=== PATIENT | male | born 1965 | race Caucasian/White ===

== ENCOUNTER 2018-09-04 20:55 | Emergency (ER) | payer MEDICAID, OTHER ==
[~2018-09-04] VITALS: Ht 185.4 cm; Wt 91.6 kg
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
--- NOTE | 2018-09-04 21:20 | NUR ---
DR. HUFFMAN AT BEDSIDE FOR EVAL.
[2018-09-04] MEDS ORDERED: OLANZAPINE 5 MG TABLET ONE (21:25)
[2018-09-04] MEDS ORDERED: TDAP [DIPH/PERTUSSIS/TET] 0.5 ML VIAL IM ONE ×2 (21:30→21:36)
[2018-09-04] MEDS ORDERED: LIDOCAINE HCL/PF 1% 30 ML VIAL TP ONE (21:30)
[2018-09-04] MEDS ORDERED: OLANZAPINE 5 MG TABLET PO ONE (21:30)
[2018-09-04] MEDS ORDERED: LIDOCAINE HCL/PF 1% 30 ML SDV ONE (21:32)
--- NOTE | 2018-09-04 21:35 | NUR ---
URINE SPECIMEN COLLECTED AND SENT TO LAB.
--- NOTE | 2018-09-04 21:35 | NUR ---
ER PHLEB AT BEDSIDE FOR BLOOD DRAW.
[2018-09-04 21:38] LABS: BASOPHILS % (AUTO) 0.6 % (0.0-2.0); EOSINOPHILS % (AUTO) 2.3 % (0.0-6.0); HEMATOCRIT 41 % (39-51); HEMOGLOBIN 14.1 g/dL (13.5-17.5); LYMPHOCYTES # (AUTO) 1.9 /CMM (0.8-4.8); LYMPHOCYTES % (AUTO) 24.5 % (20.0-44.0); MEAN CORPUSCULAR HGB CONC 34 g/dl (31.0-36.0); MEAN CORPUSCULAR VOLUME 91 fL (80-96); MONOCYTES # (AUTO) 0.9 /CMM (0.1-1.30); MONOCYTES % (AUTO) 11.4 % (2.0-12.0); NEUTROPHILS # (AUTO) 4.8 /CMM (1.8-8.9); NEUTROPHILS % (AUTO) 61.2 % (43.0-81.0); PLATELET COUNT (AUTO) 223 /CMM (150-450); RED BLOOD CELL COUNT(AUTO) 4.53 MIL/uL (4.5-6.0); WHITE BLOOD COUNT (AUTO) 7.8 K/uL (4.3-11.0)
--- NOTE | 2018-09-04 21:41 | NUR ---
SUTURING DONE BY CHRISTIAN TRACY STUDENT.
[2018-09-04 21:44] LABS: APPEARANCE,URINE CLEAR (CLEAR); BILIRUBIN,URINE NEGATIVE (NEGATIVE); BLOOD, URINE TRACE Ery/uL (NEGATIVE); COLOR,URINE YELLOW (YELLOW); KETONES,URINE NEGATIVE (NEGATIVE); LEUKOCYTE ESTERASE ,URINE NEGATIVE (NEGATIVE); NITRITE, URINE NEGATIVE (NEGATIVE); PROTEIN,URINE NEGATIVE (NEGATIVE); UGLUCOSE NEGATIVE (NEGATIVE); UROBILINOGEN,URINE 0.2 EU/dL (0.2)
[2018-09-04 21:47] LABS: CARBON DIOXIDE 24 mmol/L (21-32); CHLORIDE 103 mmol/L (98-107); CREATININE 1.2 mg/dL (0.6-1.3); GLUCOSE 114 mg/dL (74-106); POTASSIUM 4.1 mmol/L (3.5-5.1); SODIUM SERUM 138 mmol/L (136-145); UREA NITROGEN, BLOOD 12 mg/dL (7-18)
[2018-09-04 21:48] LABS: BACTERIA,URINE Rare /HPF (None Seen); SQUAMOUS EPITHELIAL CELL,UR Rare /HPF (None Seen); WBC,URINE 0-2 /HPF (0-3)
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
[2018-09-04 21:53] LABS: ACETAMINOPHEN < 2 ug/ml (10-30); ALANINE AMINOTRANSFERASE 21 U/L (12-78); ALBUMIN 3.9 g/dL (3.4-5.0); ALCOHOL, BLOOD 179 mg/dL (0-0); ALKALINE PHOSPHATASE 68 U/L (46-116); ASPARTATE AMINOTRANSFERASE 25 U/L (15-37); BILIRUBIN,DIRECT 0.1 mg/dL (0.0-0.2); BILIRUBIN,TOTAL 0.3 mg/dL (0.2-1.0); SALICYLATE < 2.8 mg/dL (2.8-20.0); TOTAL PROTEIN, SERUM 7.4 g/dL (6.4-8.2)
[2018-09-04 21:57] LABS: CALCIUM, SERUM 9.1 mg/dL (8.5-10.1)
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
--- NOTE | 2018-09-04 22:58 | NUR ---
CALLED [facility] FOR REPORT
--- NOTE | 2018-09-05 00:25 | NUR ---
PT REFUSED TO WAIT FOR [employer]. PT MEDICALLY CLEARED FOR DISCHARGE. AAOX4. RESPIRATIONS EVEN AND UNLABORED. VITAL SIGNS STABLE. AMULATORY WITH STEADY GAIT. Patient discharged to home in stable condition. Written and verbal after care instructions given. Patient verbalizes understanding of instruction.
[2018-09-05 00:27] VITALS: BP 132/89
== END 2018-09-05 00:27 | disposition home or self-care (01) ==
LOC: ER 21:01
DX: S01.312A Laceration without foreign body of left ear, initial encounter (principal); F22 Delusional disorders; F17.200 Nicotine dependence, unspecified, uncomplicated; Z88.8 Allergy status to other drugs, medicaments and biological substances; Z59.0 Homelessness; Y00.XXXA Assault by blunt object, initial encounter; Y93.89 Activity, other specified; Y92.89 Other specified places as the place of occurrence of the external cause; Y99.8 Other external cause status
CPT/HCPCS: 12013; 36415; 70450; 80048; 80076; 80305; 80307; 80329; 81001; 85025; 90471; 90715; 99284; A6403; G0480; J3490; 81000-TC

== ENCOUNTER 2018-11-17 15:58 | Emergency (ER) | payer MEDICAID ==
[~2018-11-17] VITALS: Ht 182.9 cm; Wt 96.2 kg
[2018-11-17] MEDS ORDERED: ASPIRIN 81 MG TAB.CHEW ONE (16:20)
--- NOTE | 2018-11-17 16:20 | NUR ---
L SIDED CHEST PAIN INTERMITTENT SINCE THURSDAY. APPEARS SLIGHTLY ANXIOUS. ADMITS TO HAVING A VERY POOR DIET. NO ACUTE DISTRESS NOTED. DENIES SOB, DIZZINESS, WEAKNESS. DEMARCUS PERKINS AT BEDSIDE FOR EVAL. ON MONITOR, AWAITING ORDERS
[2018-11-17] MEDS ORDERED: ASPIRIN 81 MG TAB.CHEW PO ONE (16:30)
[2018-11-17 16:31] LABS: BASOPHILS % (AUTO) 0.3 % (0.0-2.0); EOSINOPHILS % (AUTO) 3.6 % (0.0-6.0); HEMATOCRIT 44 % (39-51); HEMOGLOBIN 15.1 g/dL (13.5-17.5); LYMPHOCYTES % (AUTO) 39.9 % (20.0-44.0); MEAN CORPUSCULAR HGB CONC 34 g/dl (31.0-36.0); MEAN CORPUSCULAR VOLUME 92 fL (80-96); MONOCYTES # (AUTO) 0.5 /CMM (0.1-1.30); NEUTROPHILS # (AUTO) 2.4 /CMM (1.8-8.9); NEUTROPHILS % (AUTO) 47.2 % (43.0-81.0); PLATELET COUNT (AUTO) 222 /CMM (150-450); RED BLOOD CELL COUNT(AUTO) 4.85 MIL/uL (4.5-6.0)
[2018-11-17 16:38] LABS: CALCIUM, SERUM 9.1 mg/dL (8.5-10.1); CARBON DIOXIDE 24 mmol/L (21-32); CHLORIDE 102 mmol/L (98-107); GLUCOSE 85 mg/dL (74-106); POTASSIUM 4.1 mmol/L (3.5-5.1); UREA NITROGEN, BLOOD 12 mg/dL (7-18)
[2018-11-17 16:44] LABS: ALANINE AMINOTRANSFERASE 22 U/L (12-78); ALBUMIN 3.6 g/dL (3.4-5.0); ALKALINE PHOSPHATASE 76 U/L (46-116); ASPARTATE AMINOTRANSFERASE 16 U/L (15-37); BILIRUBIN,DIRECT 0.1 mg/dL (0.0-0.2); BILIRUBIN,TOTAL 0.7 mg/dL (0.2-1.0); TOTAL PROTEIN, SERUM 7.4 g/dL (6.4-8.2)
[2018-11-17 16:58] LABS: SODIUM SERUM 135 mmol/L (136-145)
--- NOTE | 2018-11-17 18:11 | NUR ---
ASSISTED PT UP TO USE RESTROOM. STATES FEELING BETTER, "MAYBE BECAUSE HE HASN'T BEEN MOVING". VSS. NO COMPLAINTS AT THIS TIME. WILL CONT TO MONITOR.
--- NOTE | 2018-11-17 18:41 | NUR ---
PT PROVIDED FOOD TRAY
--- NOTE | 2018-11-17 19:31 | NUR ---
IV removed. Catheter intact and site benign. Pressure and 4x4 applied to site. No bleeding noted.Patient discharged to home in stable condition. Written and verbal after care instructions given. Patient verbalizes understanding of instruction.
[2018-11-17 19:32] VITALS: BP 134/96
== END 2018-11-17 19:33 | disposition home or self-care (01) ==
LOC: ER 16:06
DX: R07.89 Other chest pain (principal); E78.5 Hyperlipidemia, unspecified; F10.20 Alcohol dependence, uncomplicated; F31.9 Bipolar disorder, unspecified; Y90.9 Presence of alcohol in blood, level not specified; Z59.0 Homelessness; Z87.891 Personal history of nicotine dependence; Z88.8 Allergy status to other drugs, medicaments and biological substances
CPT/HCPCS: 36415; 71045-TC; 80048-TC; 80076-TC; 84484-TC; 85025-TC

== ENCOUNTER 2020-03-16 18:19 | Emergency (ER) | payer MEDICAID ==
[~2020-03-16] VITALS: Ht 182.9 cm; Wt 84.8 kg
--- NOTE | 2020-03-16 18:25 | NUR ---
PT NOTED WITH IV LINE 20G ON RAC PRESERVATIVE FILLER MACHINE OPERATOR. BLOOD DRAWN AND SENT TO LAB
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
[2020-03-16] MEDS ORDERED: NITROGLYCERIN 0.4 MG/TAB BOTTLE SL ONE (18:30)
[2020-03-16] MEDS ORDERED: ASPIRIN 325 MG TABLET PO ONE (18:30)
[2020-03-16] MEDS ORDERED: ASPIRIN 325 MG TABLET ONE (18:56)
[2020-03-16] MEDS ORDERED: NITROGLYCERIN 0.4 MG/TAB BOTTLE ONE (18:56)
[2020-03-16] MEDS ORDERED: QUETIAPINE FUMARATE 100 MG TABLET PO SCH (19:00)
[2020-03-16 19:20] LABS: CALCIUM, SERUM 9.6 mg/dL (8.5-10.1); CARBON DIOXIDE 25 mmol/L (21-32); CHLORIDE 103 mmol/L (98-107); CREATININE 1.1 mg/dL (0.6-1.3); GLUCOSE 97 mg/dL (74-106); POTASSIUM 3.7 mmol/L (3.5-5.1); SODIUM SERUM 140 mmol/L (136-145); UREA NITROGEN, BLOOD 15 mg/dL (7-18)
--- NOTE | 2020-03-16 19:36 | NUR ---
URINE COLLECTED AND SENT TO LAB
[2020-03-16 20:29] LABS: BASOPHILS % (AUTO) 0.4 % (0.0-2.0); EOSINOPHILS % (AUTO) 0.7 % (0.0-6.0); HEMATOCRIT 40 % (39-51); HEMOGLOBIN 13.3 g/dL (13.5-17.5); LYMPHOCYTES % (AUTO) 14.6 % (20.0-44.0); MEAN CORPUSCULAR HGB CONC 34 g/dl (31.0-36.0); MEAN CORPUSCULAR VOLUME 90 fL (80-96); MONOCYTES # (AUTO) 0.5 /CMM (0.1-1.30); MONOCYTES % (AUTO) 7.1 % (2.0-12.0); NEUTROPHILS % (AUTO) 77.2 % (43.0-81.0); PLATELET COUNT (AUTO) 256 /CMM (150-450); RED BLOOD CELL COUNT(AUTO) 4.37 MIL/uL (4.5-6.0); WHITE BLOOD COUNT (AUTO) 6.5 K/uL (4.3-11.0)
[2020-03-16 21:07] LABS: APPEARANCE,URINE CLEAR (CLEAR); BILIRUBIN,URINE NEGATIVE (NEGATIVE); BLOOD, URINE NEGATIVE Ery/uL (NEGATIVE); COLOR,URINE YELLOW (YELLOW); LEUKOCYTE ESTERASE ,URINE TRACE (NEGATIVE); NITRITE, URINE NEGATIVE (NEGATIVE); PROTEIN,URINE TRACE mg/dl (NEGATIVE); UGLUCOSE NEGATIVE (NEGATIVE); UROBILINOGEN,URINE 0.2 EU/dL (0.2)
[2020-03-16 21:30] LABS: BACTERIA,URINE 1+ /HPF (None Seen); RBC,URINE 0-2 /HPF (0-2); SQUAMOUS EPITHELIAL CELL,UR Few /HPF (None Seen); WBC,URINE 21-50 /HPF (0-3)
[2020-03-16 21:52] LABS: ALANINE AMINOTRANSFERASE 19 U/L (12-78); ALBUMIN 3.8 g/dL (3.4-5.0); ALCOHOL, BLOOD < 3 mg/dL (0-0); ALKALINE PHOSPHATASE 79 U/L (46-116); ASPARTATE AMINOTRANSFERASE 14 U/L (15-37); BILIRUBIN,DIRECT 0.1 mg/dL (0.0-0.2); BILIRUBIN,TOTAL 0.7 mg/dL (0.2-1.0); TOTAL PROTEIN, SERUM 7.6 g/dL (6.4-8.2)
[2020-03-16 22:00] LABS: ACETAMINOPHEN < 2 ug/ml (10-30)
--- NOTE | 2020-03-16 22:32 | NUR ---
CALLED [facility] [place] [phone]
--- NOTE | 2020-03-16 22:35 | NUR ---
ETA 60 MINS
--- NOTE | 2020-03-17 | NUR ---
PER MARIANGEL FIORE; INSTRUCTIONS: ONCE COVID TEST RESULTS, FAX 1175 HOLD AND RESULTS TO [facility] [phone].
--- NOTE | 2020-03-17 00:59 | NUR ---
PT SEEN BY MARIANGEL SOARES.
--- NOTE | 2020-03-17 01:06 | NUR ---
PER LAB COVID TEST IS NEGATIVE.
[2020-03-17] MEDS ORDERED: QUETIAPINE FUMARATE 100 MG TABLET PO SCH (01:30)
--- NOTE | 2020-03-17 01:34 | NUR ---
PROVIDED MARIANGEL FIORE WITH PT COVID RESULTS.
[2020-03-17] MEDS ORDERED: LORAZEPAM 1 MG TABLET PO ONE (02:00)
[2020-03-17] MEDS ORDERED: QUETIAPINE FUMARATE 100 MG TABLET ONE (02:05)
--- NOTE | 2020-03-17 02:23 | NUR ---
COIVD RESULTS AND 5150 HOLD FAXED TO [facility] [phone]. PER RADIO MECHANIC APPRENTICE [facility] WILL FOLLOW UP IN AM.
[2020-03-17] MEDS ORDERED: DIVALPROEX SODIUM 500 MG TABLET.DR PO ONE ×2 (10:30→10:35)
--- NOTE | 2020-03-17 12:18 | NUR ---
STILL WAITING FOR [facility] FOR PT TRANSFER INFO. NO CALL BACK YET
--- NOTE | 2020-03-17 14:00 | NUR ---
PT ATE LUNCH VSS CALM AND QUIET
--- NOTE | 2020-03-17 14:43 | NUR ---
FAXED INFORMATION TO [facility] X2 AND NO RESPONSE FROM RECIEVING CLINICAL INFORMATION. SPOKE TO [facility] AND WILL FOLLOW UP WITH [facility].
--- NOTE | 2020-03-17 15:00 | NUR ---
PT WATCHING TV RESTING COMFORTABLY
--- NOTE | 2020-03-17 15:50 | NUR ---
WEED BURNER JUAN WORKING ON PATIENT TRANSFER. WILL CALL US BACK IN AN HOUR
--- NOTE | 2020-03-17 17:31 | NUR ---
[facility] CALLED BACK TO FOLLOW UP IF [facility] ALREADY CALLED. WAS ADVISED BY HER THAT SHE WILL FOLLOW UP WITH [facility]
[2020-03-17] MEDS ORDERED: NITROGLYCERIN 0.4 MG/TAB BOTTLE SL ONE (19:00)
[2020-03-17] MEDS ORDERED: NITROGLYCERIN 0.4 MG/TAB BOTTLE ONE (19:21)
--- NOTE | 2020-03-17 19:22 | NUR ---
SPOKE TO [place] AUGUST, STATES SHE SPOKE TO ALEXANDRA FROM [facility], PENDING TRANSFER INFORMATION.
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
--- NOTE | 2020-03-17 20:10 | NUR ---
AUDREY FIORE JOURNALISM INTERN WILL RECEIVE TRANSFER INFO IN 30 MINS PER [facility].
--- NOTE | 2020-03-17 20:41 | NUR ---
SPOKE TO CHRISTIANO FROM [facility], AUDREY ALVARADO WILL FOLLOW UP IN A FEW HOURS D/T RECEIVING NITRO SL TAB FOR CHEST PAIN. AWARE PT DENIES CP AT THIS TIME.
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
[2020-03-17 23:00] VITALS: BP 131/94
--- NOTE | 2020-03-17 23:00 | NUR ---
CALLED [facility] [phone] FOR ADMISSION UPDATE. SPOKE TO CHRISTIANO STATES " I WILL CALL YOU BACK"
--- NOTE | 2020-03-17 23:08 | NUR ---
PER PRECISION MACHINIST [facility], AWARE CHRISTIANO IS SUPPOSED TO CALL BACK WITH TRANSFER INFO. SHE WILL ESCALATE TO [facility].
--- NOTE | 2020-03-17 23:15 | NUR ---
SPOKE TO [facility] AND ADVISED US THAT SHE HAD SPOKEN TO JL REGARDING ADMISSION AT [facility]. [facility] WILL CONTACT [facility] INTAKE FOR POSSIBLE ADMISSION FOR GERIATRIC PSYCH ADMISSION. AT THE MOMENT IS NO UPDATE WE WILL STILL WAIT FOR [facility] TO CALL BACK.
--- NOTE | 2020-03-17 23:20 | NUR ---
RECIEVED A CALL FROM [facility] AND ADVISED THAT SHE SPOKE TO [facility] AND [facility]. PER BOTH HOSPITALS INTAKE, THEY ARE FULL AND NO BEDS AVAILABLE. WILL STILL HAVE TO WAIT FOR [facility] TO CALL BACK.
--- NOTE | 2020-03-17 23:22 | NUR ---
SPOKE TO CHRISTIANO [facility] CALL BACK [phone] REPORT TO THERON CEBALLOS. ACCEPTING DR. PERRY BED 129-C
--- NOTE | 2020-03-17 23:28 | NUR ---
Ebony isbell in ED - 03/17/20 at 2329 by EVICTOR CALLED [facility] FOR TRANSPORT. ETA [phone].
--- NOTE | 2020-03-17 23:29 | NUR ---
CALLED [facility] FOR TRANSPORT. ETA [phone].
[2020-03-17] MEDS ORDERED: chlorproMAZINE HCL 25 MG TABLET PO ONE (23:30)
[2020-03-17] MEDS ORDERED: QUETIAPINE FUMARATE 100 MG TABLET PO ONE (23:30)
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
--- NOTE | 2020-03-17 23:46 | NUR ---
REPORT GIVEN TO TUCKER CRUMP AT [facility] FOR [facility].
[2020-03-18] MEDS ORDERED: QUETIAPINE FUMARATE 100 MG TABLET ONE ×2 (00:36→00:38)
[2020-03-18] MEDS ORDERED: chlorproMAZINE HCL 25 MG TABLET ONE (00:47)
== END 2020-03-18 02:20 ==
LOC: ER 18:22
DX: R07.9 Chest pain, unspecified (principal); R45.851 Suicidal ideations; Z59.0 Homelessness; Z20.828 Contact with and (suspected) exposure to other viral communicable diseases; F17.200 Nicotine dependence, unspecified, uncomplicated; F31.9 Bipolar disorder, unspecified; F20.9 Schizophrenia, unspecified; Z82.49 Family history of ischemic heart disease and other diseases of the circulatory system; Z88.8 Allergy status to other drugs, medicaments and biological substances; R82.71 Bacteriuria; R00.0 Tachycardia, unspecified
CPT/HCPCS: 36415; 71045; 80048; 80076; 80299; 80307; 80320; 81001; 84484; 85025; 87086; 87426; 93005; 99285; C9803; Q0161; 81000-TC; G0480

== ENCOUNTER 2020-03-31 04:12 | Emergency (ER) | payer MEDICAID ==
[~2020-03-31] VITALS: Ht 180.3 cm; Wt 84.8 kg
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
--- NOTE | 2020-03-31 04:35 | NUR ---
[employer] AT BEDSIDE
--- NOTE | 2020-03-31 04:35 | NUR ---
URINE COLLECTED AND SENT TO LAB
[2020-03-31] MEDS ORDERED: ONDANSETRON HCL/PF 4 MG/2 ML VIAL ONE ×2 (04:48→06:11)
[2020-03-31] MEDS: ONDANSETRON HCL/PF 4 MG/2 ML VIAL IV ONE (04:51)
[2020-03-31 04:54] LABS: BASOPHILS % (AUTO) 0.2 % (0.0-2.0); EOSINOPHILS % (AUTO) 0.9 % (0.0-6.0); HEMATOCRIT 43 % (39-51); HEMOGLOBIN 14.5 g/dL (13.5-17.5); LYMPHOCYTES # (AUTO) 1.6 /CMM (0.8-4.8); LYMPHOCYTES % (AUTO) 18.5 % (20.0-44.0); MEAN CORPUSCULAR HGB CONC 34 g/dl (31.0-36.0); MEAN CORPUSCULAR VOLUME 91 fL (80-96); MONOCYTES # (AUTO) 0.8 /CMM (0.1-1.30); MONOCYTES % (AUTO) 9.7 % (2.0-12.0); NEUTROPHILS # (AUTO) 6.2 /CMM (1.8-8.9); NEUTROPHILS % (AUTO) 70.7 % (43.0-81.0); PLATELET COUNT (AUTO) 257 /CMM (150-450); RED BLOOD CELL COUNT(AUTO) 4.72 MIL/uL (4.5-6.0); WHITE BLOOD COUNT (AUTO) 8.7 K/uL (4.3-11.0)
[2020-03-31 04:58] LABS: BILIRUBIN,URINE NEGATIVE (NEGATIVE); BLOOD, URINE TRACE-INTA Ery/uL (NEGATIVE); COLOR,URINE YELLOW (YELLOW); LEUKOCYTE ESTERASE ,URINE TRACE (NEGATIVE); NITRITE, URINE NEGATIVE (NEGATIVE); PROTEIN,URINE NEGATIVE (NEGATIVE); UGLUCOSE NEGATIVE (NEGATIVE); UROBILINOGEN,URINE 0.2 EU/dL (0.2)
[2020-03-31 05:05] LABS: BACTERIA,URINE Few /HPF (None Seen); SQUAMOUS EPITHELIAL CELL,UR Few /HPF (None Seen)
[2020-03-31 05:16] LABS: ALANINE AMINOTRANSFERASE 30 U/L (12-78); ALBUMIN 3.9 g/dL (3.4-5.0); ALCOHOL, BLOOD < 3 mg/dL (0-0); ALKALINE PHOSPHATASE 91 U/L (46-116); ASPARTATE AMINOTRANSFERASE 16 U/L (15-37); BILIRUBIN,DIRECT 0.1 mg/dL (0.0-0.2); BILIRUBIN,TOTAL 0.6 mg/dL (0.2-1.0); CALCIUM, SERUM 9.7 mg/dL (8.5-10.1); CARBON DIOXIDE 25 mmol/L (21-32); CHLORIDE 98 mmol/L (98-107); CREATININE 1.1 mg/dL (0.6-1.3); GLUCOSE 128 mg/dL (74-106); POTASSIUM 4.1 mmol/L (3.5-5.1); SODIUM SERUM 135 mmol/L (136-145); UREA NITROGEN, BLOOD 10 mg/dL (7-18)
[2020-03-31] MEDS ORDERED: LORAZEPAM INJ 2 MG/ML VIAL ONE ×4 (05:25→09:05)
[2020-03-31] MEDS: LORAZEPAM INJ 2 MG/ML VIAL IV ONE ×4 (05:28→09:08)
--- NOTE | 2020-03-31 05:37 | NUR ---
[facility] NEIL PAGED FOR PSYCH EVAL.
[2020-03-31 05:43] LABS: ACETAMINOPHEN < 2 ug/ml (10-30)
[2020-03-31] MEDS: ONDANSETRON HCL/PF - ER 4 MG/2 ML VIAL IV ONE (06:17)
[2020-03-31] MEDS: IV NS 0.9% 1,000 ML BAG IV ONE (06:17)
--- NOTE | 2020-03-31 06:35 | NUR ---
DR HANSEN AT BEDSIDE
--- NOTE | 2020-03-31 06:35 | NUR ---
[facility], CRISIS TEAM MEAT PRESS OPERATOR AT BEDSIDE FOR ALDA
--- NOTE | 2020-03-31 07:00 | NUR ---
JOANN SENT TO LAB
--- NOTE | 2020-03-31 07:22 | NUR ---
RECEIVED ENDORSEMENT FROM MATTHEW CRUMP FOR [facility]. PATIENT IN BED AWAKE, HOOKED TO MONITOR. ELEVATED BP, AWARE. NOTED SWEATING. WILL CONTINUE TO MONITOR ACCORDINGLY.
--- NOTE | 2020-03-31 07:23 | NUR ---
SITTER AT BEDSIDE FOR SAFETY
[2020-03-31] MEDS ORDERED: OLANZAPINE 10 MG VIAL IM ONE (07:52)
[2020-03-31] MEDS: OLANZAPINE 10 MG VIAL IM ONE (07:55)
--- NOTE | 2020-03-31 10:31 | NUR ---
John from Lab Released COVID result: Negative
--- NOTE | 2020-03-31 12:36 | NUR ---
Spoke to car Negro Per checkout supervisor Elizabeth "Pt has been accepted BUT pending bed assignment- waiting for discharges"
--- NOTE | 2020-03-31 12:36 | NUR ---
Ebony isbell in ED - 03/31/20 at 1504 by DAMARIS Spoke to intake Sruthi Per station supervisor Elizabeth "Pt has been accepted to [facility] pending bed assignment- waiting for discharges"
--- NOTE | 2020-03-31 15:01 | NUR ---
PT IS ACCEPTED AT [facility] BY [phone] EXT [phone] PER JESSENIA INTAKE SEND PT AFTER 7PM.
--- NOTE | 2020-03-31 16:22 | NUR ---
s transport to [facility] arranged with [facility] trip #[phone] ETA [phone]
--- NOTE | 2020-03-31 18:16 | NUR ---
REPORT GIVEN TO ARMANDO CRUMP OF [facility]. COVID RESULT FAXED TO [phone]
--- NOTE | 2020-03-31 19:06 | NUR ---
REPORT GIVEN TO ROSAURA CRUMP FOR [facility]
--- NOTE | 2020-03-31 19:38 | NUR ---
REPORT GIVEN TO LINN Hicks FOR TRANSPORTATION [facility]. PT TRANSFERRED TO [facility] IN STABLE CONDITION
[2020-03-31 19:42] VITALS: BP 138/91
== END 2020-03-31 19:43 | disposition short-term general hospital (02) ==
LOC: ER 04:14
DX: R45.851 Suicidal ideations (principal); F15.10 Other stimulant abuse, uncomplicated; R07.9 Chest pain, unspecified; R00.0 Tachycardia, unspecified; Z20.828 Contact with and (suspected) exposure to other viral communicable diseases
CPT/HCPCS: 36415; 80048; 80076; 80299; 80307; 80320; 81001; 84484 ×2; 85025; 87086; 87426; 93005 ×2; 96361; 96372; 96374; 96375; 96376; 99291; C9803; J2060 ×4; J2405 ×3; J3490; J7030; 81000-TC; G0480

== ENCOUNTER 2020-04-07 02:20 | Emergency (ER) | payer MEDICAID ==
[~2020-04-07] VITALS: Ht 185.4 cm; Wt 84.8 kg
[2020-04-07 02:54] LABS: BILIRUBIN,URINE Negative (NEGATIVE); BLOOD, URINE Trace-intact Ery/uL (NEGATIVE); COLOR,URINE YELLOW (YELLOW); LEUKOCYTE ESTERASE ,URINE Moderate (NEGATIVE); NITRITE, URINE Positive (NEGATIVE); PH,URINE 7.5 (5.0-8.0); PROTEIN,URINE Trace mg/dl (NEGATIVE); UGLUCOSE Negative (NEGATIVE); UROBILINOGEN,URINE 0.2 EU/dL (0.2)
[2020-04-07 02:56] LABS: CALCIUM, SERUM 9.1 mg/dL (8.5-10.1); CARBON DIOXIDE 29 mmol/L (21-32); CHLORIDE 98 mmol/L (98-107); CREATININE 1.1 mg/dL (0.6-1.3); GLUCOSE 133 mg/dL (74-106); POTASSIUM 4.1 mmol/L (3.5-5.1); SODIUM SERUM 134 mmol/L (136-145); UREA NITROGEN, BLOOD 15 mg/dL (7-18)
[2020-04-07 02:59] LABS: BASOPHILS # (AUTO) 0.1 /CMM (0.0-0.2); BASOPHILS % (AUTO) 0.9 % (0.0-2.0); EOSINOPHILS % (AUTO) 1.4 % (0.0-6.0); HEMATOCRIT 43 % (39-51); HEMOGLOBIN 14.4 g/dL (13.5-17.5); LYMPHOCYTES # (AUTO) 1.4 /CMM (0.8-4.8); LYMPHOCYTES % (AUTO) 19.7 % (20.0-44.0); MEAN CORPUSCULAR HGB CONC 33 g/dl (31.0-36.0); MEAN CORPUSCULAR VOLUME 92 fL (80-96); MONOCYTES # (AUTO) 0.6 /CMM (0.1-1.30); MONOCYTES % (AUTO) 8.2 % (2.0-12.0); NEUTROPHILS % (AUTO) 69.8 % (43.0-81.0); PLATELET COUNT (AUTO) 341 /CMM (150-450); WHITE BLOOD COUNT (AUTO) 7.1 K/uL (4.3-11.0)
[2020-04-07 03:15] LABS: ALANINE AMINOTRANSFERASE 21 U/L (12-78); ALBUMIN 3.7 g/dL (3.4-5.0); ALCOHOL, BLOOD < 3 mg/dL (0-0); ALKALINE PHOSPHATASE 86 U/L (46-116); ASPARTATE AMINOTRANSFERASE 13 U/L (15-37); BILIRUBIN,DIRECT 0.1 mg/dL (0.0-0.2); BILIRUBIN,TOTAL 0.3 mg/dL (0.2-1.0); TOTAL PROTEIN, SERUM 8.3 g/dL (6.4-8.2)
[2020-04-07 03:17] LABS: ACETAMINOPHEN < 10 ug/ml (10-30)
--- NOTE | 2020-04-07 03:26 | NUR ---
FACESHEET AND CLINICALS FAXED TO [facility].
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
[2020-04-07 03:56] LABS: BACTERIA,URINE Many /HPF (None Seen); SQUAMOUS EPITHELIAL CELL,UR Few /HPF (None Seen)
[2020-04-07 03:57] LABS: URINE AMORPHOUS PHOSPHATES Many /HPF (None Seen); WBC,URINE 51-80 /HPF (0-3)
[2020-04-07] MEDS: CEPHALEXIN MONOHYDRATE 500 MG CAPSULE PO SCH ×2 (04:00→09:03)
[2020-04-07] MEDS ORDERED: CEPHALEXIN MONOHYDRATE 500 MG CAPSULE PO ONE ×2 (04:04→09:01)
--- NOTE | 2020-04-07 05:24 | NUR ---
Pt accepted to [facility] by Dr Camarillo. # for report [phone]
--- NOTE | 2020-04-07 05:44 | NUR ---
RESERVATION # [id number] [facility]
--- NOTE | 2020-04-07 05:55 | NUR ---
REPORT GIVEN TO CHEIKH CRUMP FOR [facility].
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
[2020-04-07 11:08] VITALS: BP 141/88
== END 2020-04-07 11:08 ==
LOC: ER 02:24
DX: R45.851 Suicidal ideations (principal); F15.159 Other stimulant abuse with stimulant-induced psychotic disorder, unspecified; N39.0 Urinary tract infection, site not specified; Z20.828 Contact with and (suspected) exposure to other viral communicable diseases; Z59.0 Homelessness; Z88.8 Allergy status to other drugs, medicaments and biological substances; I10 Essential (primary) hypertension; F31.9 Bipolar disorder, unspecified; F17.290 Nicotine dependence, other tobacco product, uncomplicated
CPT/HCPCS: 36415; 80048; 80076; 80299; 80307; 80320; 81001; 85025; 87077; 87086; 87186; 87426; 99285; C9803; G0480

== ENCOUNTER → 2020-05-25 | Emergency (ER) | payer MEDICAID ==
[~2020-05-25] VITALS: Ht 185.4 cm; Wt 81.6 kg
[~2020-05-25] MED LIST: MAG HYDROX/AL HYDROX/SIMETH 30 ML UDC PO ONE; MAGNESIUM HYDROXIDE 30 ML UDC ONE
[2020-05-25 08:24] LABS: BASOPHILS % (AUTO) 0.7 % (0.0-2.0); EOSINOPHILS % (AUTO) 1.6 % (0.0-6.0); HEMATOCRIT 40 % (39-51); LYMPHOCYTES # (AUTO) 1.3 /CMM (0.8-4.8); MEAN CORPUSCULAR HGB CONC 33 g/dl (31.0-36.0); MEAN CORPUSCULAR VOLUME 92 fL (80-96); MONOCYTES # (AUTO) 0.7 /CMM (0.1-1.30); MONOCYTES % (AUTO) 14.5 % (2.0-12.0); NEUTROPHILS # (AUTO) 2.9 /CMM (1.8-8.9); NEUTROPHILS % (AUTO) 57.2 % (43.0-81.0); PLATELET COUNT (AUTO) 307 /CMM (150-450); RED BLOOD CELL COUNT(AUTO) 4.35 MIL/uL (4.5-6.0)
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
[2020-05-25 09:04] LABS: CALCIUM, SERUM 9.2 mg/dL (8.5-10.1); CARBON DIOXIDE 28 mmol/L (21-32); CHLORIDE 100 mmol/L (98-107); CREATININE 1.1 mg/dL (0.6-1.3); GLUCOSE 145 mg/dL (74-106); POTASSIUM 4.3 mmol/L (3.5-5.1); SODIUM SERUM 137 mmol/L (136-145); UREA NITROGEN, BLOOD 20 mg/dL (7-18)
[2020-05-25 09:10] LABS: ALANINE AMINOTRANSFERASE 17 U/L (12-78); ALBUMIN 3.2 g/dL (3.4-5.0); ALCOHOL, BLOOD < 3 mg/dL (0-0); ALKALINE PHOSPHATASE 78 U/L (46-116); ASPARTATE AMINOTRANSFERASE 8 U/L (15-37); BILIRUBIN,DIRECT 0.1 mg/dL (0.0-0.2); BILIRUBIN,TOTAL 0.4 mg/dL (0.2-1.0); TOTAL PROTEIN, SERUM 6.8 g/dL (6.4-8.2)
[2020-05-25 09:26] LABS: ACETAMINOPHEN 0 ug/ml (10-30)
[2020-05-25 10:03] LABS: BILIRUBIN,URINE NEGATIVE (NEGATIVE); COLOR,URINE YELLOW (YELLOW); LEUKOCYTE ESTERASE ,URINE NEGATIVE (NEGATIVE); NITRITE, URINE NEGATIVE (NEGATIVE); PROTEIN,URINE NEGATIVE (NEGATIVE); UGLUCOSE NEGATIVE (NEGATIVE); UROBILINOGEN,URINE 0.2 EU/dL (0.2)
--- NOTE | 2020-05-25 11:33 | NUR ---
pty pending eval vss cont to montiorPatient discharged to home in stable condition. Written and verbal after care instructions given. Patient verbalizes understanding of instruction.
[2020-05-25 12:19] VITALS: BP 136/86
--- NOTE | 2020-05-25 13:06 | NUR ---
CALLED EMPLOYMENT COACH ART INFORMED TO SEND [facility]ACKET [facility]
--- NOTE | 2020-05-25 15:35 | NUR ---
COVID RESULT: NEGATIVE.
--- NOTE | 2020-05-25 15:48 | NUR ---
JULIANO CALLED FROM [facility] PEREZ MD IS DARRYN CALL [phone] LIZETH FOR REPORT.
--- NOTE | 2020-05-25 15:55 | NUR ---
CALLED AM [facility] ETA IS 1999. CALLED [facility] ETA IS 20-30 MINS. PER YASHIRA
== END ==
LOC: ER 07:54
DX: T43.592A Poisoning by other antipsychotics and neuroleptics, intentional self-harm, initial encounter (principal); R42 Dizziness and giddiness; Y92.89 Other specified places as the place of occurrence of the external cause; R00.0 Tachycardia, unspecified; Z59.0 Homelessness; F31.9 Bipolar disorder, unspecified; F19.10 Other psychoactive substance abuse, uncomplicated; I10 Essential (primary) hypertension; Z91.5 Personal history of self-harm
CPT/HCPCS: 36415; 80048; 80076; 80299; 80307; 80320; 81003; 85025; 87426; 93005; 99285; C9803; G0480